=== PATIENT | female | born 1975 | race Caucasian/White ===

== ENCOUNTER → 2018-12-27 | Outpatient (CLI) | payer OTHER ==
[~2018-12-27] VITALS: Ht 162.6 cm; Wt 61.2 kg
[~2018-12-27] MED LIST: LIDOCAINE 1% INJ 20 ML 20 ML VIAL INJ ONE
--- NOTE | 2018-12-27 13:56 | Diagnostic Imaging Report ---
INDICATION: Left breast calcifications. PROCEDURE: The patient presents for a stereotactic biopsy. DESCRIPTION OF PROCEDURE: The patient was brought to the stereotactic suite, placed in a chair in a sitting upright position. The left breast was positioned lateral medially. The calcifications in the upper and slightly outer left breast at mid depth were stereotactically targeted. The left lateral breast was then prepped and draped usual sterile fashion a small amount of 1% lidocaine was utilized for local anesthesia. An 8 gauge needle was advanced into left breast from a lateral medial approach and placed per stereotactic coordinates. A total of 4 core biopsies were obtained with the vacuum-assisted device. Specimen radiographs reviewed at a dedicated workstation. Specimens do contain microcalcifications. In particular, specimen 2 contains a cluster of microcalcifications. There also appears to be calcifications in specimens 3 and 4. Marker clip was deployed. Needle was removed and hemostasis obtained. Patient tolerated the procedure well and was sent for postprocedure mammogram in satisfactory condition. Post procedure mammogram shows a marker clip adjacent to the area of biopsy in the upper left breast. Several calcifications remain in the lateral aspect of the left breast. Impression: Left breast stereotactic biopsy, as described. Pathology results are currently pending. Dictated by: Dictated on workstation # [id number]
== END ==
LOC: RAD 09:41
PROVIDERS: ATTEND Nurse Practitioner Women's Health
DX: N60.22 Fibroadenosis of left breast (principal); R92.0 Mammographic microcalcification found on diagnostic imaging of breast
CPT/HCPCS: 19081